=== PATIENT | female | born 1980 | race Hispanic/Latino ===

== ENCOUNTER 2025-03-09 17:43 | Emergency (ER) | payer SELFPAY ==
[~2025-03-09] VITALS: Ht 165.1 cm; Wt 91.2 kg
[2025-03-09 18:42] VITALS: PULSE 61; RESP 16; TEMP 97.8
[2025-03-09] MEDS: SODIUM CHLORIDE 0.9% 1000ML 1,000 ML IV STA (19:35)
[2025-03-09 19:40] LABS: BASOPHILS % 0.4 % (0.0-1.0); EOSINOPHILS % 0.4 % (0.0-6.0); LYMPHOCYTES % 26.4 % (18.0-39.1); MONOCYTES % 6.2 % (4.4-11.3); NEUTROPHILS % 66.3 % (38.7-80.0); RED CELL DISTRIBUTION WIDTH 12.3 % (11.7-14.4)
[2025-03-09 20:18] LABS: EST GLOMERULAR FILTRATION RATE 77.0 ML/MIN (>=60)
[2025-03-09 20:44] VITALS: BP 165/91; PULSE 55; RESP 20; O2SAT 100
== END 2025-03-09 20:46 | disposition home or self-care (01) ==
LOC: ER 17:59
DX: R03.0 Elevated blood-pressure reading, without diagnosis of hypertension (principal); I10 Essential (primary) hypertension; E03.9 Hypothyroidism, unspecified; R09.89 Other specified symptoms and signs involving the circulatory and respiratory systems; R94.31 Abnormal electrocardiogram [ECG] [EKG]
CPT/HCPCS: 36415; 71045; 80053; 82550; 83690; 83880; 84484; 85025; 93005; 99284; J7030